=== PATIENT | female | born 1995 | race Caucasian/White ===

== ENCOUNTER 2016-12-15 09:38 | Observation (INO) | payer MEDICAID ==
[2016-12-15 10:09] LABS: WBC/URINE 20-30 (0-5)
[2016-12-15] MEDS ORDERED: DEXAMETHASONE 4 MG/ML VIAL IV ONE (10:10)
[2016-12-15] MEDS ORDERED: MIDAZOLAM 2 MG/2 ML VIAL IV ONE (10:10)
[2016-12-15] MEDS ORDERED: ROCURONIUM 50 MG/5 ML VIAL IV ONE (10:10)
[2016-12-15] MEDS ORDERED: SUCCINYLCHOLINE 20 MG/1 ML INJ 10 ML MDV IV ONE (10:10)
[2016-12-15] MEDS ORDERED: FENTANYL 250 MCG/5 ML VIAL IV ONE (10:10)
[2016-12-15] MEDS ORDERED: GLYCOPYRROLATE 1 MG VIAL IM ONE (10:10)
[2016-12-15] MEDS ORDERED: ONDANSETRON HCL 4 MG/2 ML VIAL IV ONE ×2 (10:10→10:19)
[2016-12-15] MEDS ORDERED: METOCLOPRAMIDE 10 MG/2 ML VIAL IV ONE (10:10)
[2016-12-15] MEDS ORDERED: NEOSTIGMINE 1 MG/1 ML (1:1000) INJ 10 ML MDV IM ONE (10:10)
[2016-12-15] MEDS ORDERED: LIDOCAINE 100 MG PFS IV ONE (10:10)
[2016-12-15] MEDS ORDERED: PROPOFOL 200 MG/20 ML VIAL IV ONE (10:10)
[2016-12-15 10:12] LABS: LEUKOCYTES/URINE 2+ (NEGATIVE); NITRITE/URINE NEG (NEGATIVE); URINE OCCULT BLOOD NEG (NEG/TRACE)
[2016-12-15] MEDS ORDERED: MORPHINE 4 MG/ML INJECTION IV ONE (10:19)
[2016-12-15] MEDS ORDERED: DIATRIZOATE MEGLMINE/SODIUM 30 ML BOTTLE PO ONE (10:19)
[2016-12-15] MEDS ORDERED: NS 1,000 ML IV ONE (10:22)
--- NOTE | 2016-12-15 10:22 | EDPRACDOC ---
- General Information Chief Complaint: Abdominal Pain Stated Complaint: RT ABD PAIN Time Seen by Provider: 12/15/16 10:04 Information Source: Patient Mode Of Arrival: Car Home Medications: Home Medications No Home Medications 12/15/16 Allergies/Adverse Reactions: Allergies Allergy/AdvReac Type Severity Reaction Status Date / Time No Known Allergies Allergy Verified 12/15/16 09:46 - History of Present Illness Onset: wednesday Pain Location: Reports: RLQ Pain Context: Reports: Spontaneous Pain Severity: Moderate Pain Quality: Reports: Aching Pain Radiation: Reports: No Radiation Last Menstrual Period: new baby 6 weeks: : No Blood Type: A+ Female Abdominal History: Denies: Abdominal Surgery, UTI, Ectopic, PID, Urolithiasis, Similar Pain (dx) Modifying Factors: improves with: Movement Female Associated Signs & Symptoms: Reports: Nausea, Vomiting, Anorexia, Dysuria , Urgency. Denies: Diarrhea, Fever, Hematuria, Vaginal Discharge (STABLE FROM DELIVERY) Oral Intake: Decreased Urinary Output: Decreased Other History: NOT BREAST FEEDING ED Past Medical History - History Reviewed Yes Nurses notes reviewed and agree except as marked - Patient Medical History Psychological History: Denies: Depression Systemic History: Reports: Anemia. Denies: Cancer Additional Past Surgical History: SPONTANEOUS VAGINAL DELIVERY - Family Medical History Denies: Hypertension, Diabetes, Cancer, Stroke, Cardiac Disorders - Social Medical History Smoking Status: Heavy tobacco smoker (5 or more cigarettes/day or daily pipe/ cigar) Social History: Denies: Amphetamine Use, Barbiturate Use, Benzodiazipine Use Lives With: Significant Other Lives In: Home EDM Review of Systems - Review of Systems ROS Negative Except as Marked: Yes All systems reviewed and were negative except as marked - Physical Exam Constitutional: Alert, Distress (UNCOMFORTABLE) Oriented to: Time, Person, Place Last recorded Vital Signs: Last Vital Signs Temp 98.5 F 12/15/16 09:44 Pulse 59 L 12/15/16 11:58 Resp 18 12/15/16 11:58 BP 119/66 12/15/16 11:58 Pulse Ox 100 12/15/16 11:58 Oxygen Pulse Oxygen Saturation 100 O2 Device Room Air Oxygen Flow Rate Fraction of Inspired Oxygen ( FIO2) - HEENT Head: Normal Eye Exam: Normal. negative: Pale Conjunctiva, Scleral Icterus Oropharynx: Normal. negative: Membranes Dry - Respiratory/Cardiovascular Respiratory: Normal - CTA Cardiovascular: Normal - GI Auscultation: Normal Palpation: Normal Tenderness: Moderate, Guarding (VOLUNTARY), RLQ. negative: Rebound, Rigidity Bashir's Sign: Negative - Musculoskeletal Back: Normal. negative: CVA Tenderness, Thoracic TTP, Lumbar TTP Extremities: Normal - Integumentary Skin: Normal, Warm, Dry - Neurologic Memory Impaired: Normal Mood Description: Normal Thought: Coherent Perception: Normal - Differential Diagnosis Appendicitis, Inflammatory Bowel Dz, UTI, Ureterolithiasis - Results 12/15/16 09:57 12/15/16 09:57 WBC 14.7 xk/uL (3.8-10.8) H 12/15/16 09:57 RBC 4.39 xM/uL (4.20-5.40) 12/15/16 09:57 Hgb 13.5 g/dL (12.0-16.0) 12/15/16 09:57 Hct 39.7 % (36-47) 12/15/16 09:57 MCV 90 fL (81-99) 12/15/16 09:57 MCH 30.7 pg (27-32) 12/15/16 09:57 MCHC 34.0 g/dl (33-36) 12/15/16 09:57 RDW 14.0 % (11.5-14.5) 12/15/16 09:57 Plt Count 186 xk/uL (130-400) 12/15/16 09:57 MPV 9.9 fL (7.4-10.4) 12/15/16 09:57 Neut % (Auto) 76.9 % (45-76) H 12/15/16 09:57 Lymph % (Auto) 13.0 % (17-44) L 12/15/16 09:57 [place] % (Auto) 8.7 % (3-10) 12/15/16 09:57 Eos % (Auto) 0.8 % (0-5) 12/15/16 09:57 Baso % (Auto) 0.6 % (0-2) 12/15/16 09:57 Absolute Neuts (auto) 11.17 xk/uL (1.7-8.2) H 12/15/16 09:57 Absolute Lymphs (auto) 1.91 xk/uL (0.65-4.75) 12/15/16 09:57 Sodium 141 mEq/L (137-146) 12/15/16 09:57 Potassium 3.6 mEq/L (3.5-5.1) 12/15/16 09:57 Chloride 103 mEq/L (98-107) 12/15/16 09:57 Carbon Dioxide 26 mMOL/L (22-33) 12/15/16 09:57 Anion Gap 16 mEq/L (8-16) 12/15/16 09:57 BUN 14 MG/DL (7-17) 12/15/16 09:57 Creatinine 0.90 MG/DL (0.52-1.04) 12/15/16 09:57 Estimated GFR (MDRD) > 60 mL/min (>=60) 12/15/16 09:57 Glucose 91 MG/DL (70-99) 12/15/16 09:57 Calculated Osmolality 272 MOs/Kg (270-290) 12/15/16 09:57 Calcium 9.6 MG/DL (8.4-10.2) 12/15/16 09:57 Total Bilirubin 1.3 MG/DL (0.2-1.3) 12/15/16 09:57 AST 16 IU/L (14-36) 12/15/16 09:57 ALT 24 IU/L (9-52) 12/15/16 09:57 Alkaline Phosphatase 59 IU/L (38-126) 12/15/16 09:57 Total Protein 7.3 G/DL (6.3-8.2) 12/15/16 09:57 Albumin 4.3 G/DL (3.5-5.0) 12/15/16 09:57 Urine Color Yellow 12/15/16 09:44 Urine Clarity Cldy 12/15/16 09:44 Urine pH 7.0 (5.0-8.0) 12/15/16 09:44 Ur Specific [place] 1.005 (1.003-1.035) 12/15/16 09:44 Urine Protein 1+ (NEG/TRACE) H 12/15/16 09:44 Urine Glucose (UA) Neg (NEGATIVE) 12/15/16 09:44 Urine Ketones Neg (NEGATIVE) 12/15/16 09:44 Urine Occult Blood Neg (NEG/TRACE) 12/15/16 09:44 Urine Nitrite Neg (NEGATIVE) 12/15/16 09:44 Urine Bilirubin Neg (NEGATIVE) 12/15/16 09:44 Urine Urobilinogen 0.2 MG/DL (0-1) 12/15/16 09:44 Ur Leukocyte Esterase 2+ (NEGATIVE) H 12/15/16 09:44 Urine RBC 5-10 (0-5) H 12/15/16 09:44 Urine WBC 20-30 (0-5) H 12/15/16 09:44 Ur Epithelial Cells 4+ 12/15/16 09:44 Urine Bacteria 2+ (NEG/FEW) H 12/15/16 09:44 Urine Mucus Large (NEG/OCC) 12/15/16 09:44 Urine Test Neg (NEGATIVE) 12/15/16 09:44 Lab Results 12/15/16 12/15/16 12/15/16 09:57 09:57 09:44 WBC 14.7 H RBC 4.39 Hgb 13.5 Hct 39.7 MCV 90 MCH 30.7 MCHC 34.0 RDW 14.0 Plt Count 186 MPV 9.9 Neut % (Auto) 76.9 H Lymph % (Auto) 13.0 L [place] % (Auto) 8.7 Eos % (Auto) 0.8 Baso % (Auto) 0.6 Absolute Neuts (auto) 11.17 H Absolute Lymphs (auto) 1.91 Sodium 141 Potassium 3.6 Chloride 103 Carbon Dioxide 26 Anion Gap 16 BUN 14 Creatinine 0.90 Estimated GFR (MDRD) > 60 Glucose 91 Calculated Osmolality 272 Calcium 9.6 Total Bilirubin 1.3 AST 16 ALT 24 Alkaline Phosphatase 59 Total Protein 7.3 Albumin 4.3 Urine Color Yellow Urine Clarity Cldy Urine pH 7.0 Ur Specific [place] 1.005 Urine Protein 1+ H Urine Glucose (UA) Neg Urine Ketones Neg Urine Occult Blood Neg Urine Nitrite Neg Urine Bilirubin Neg Urine Urobilinogen 0.2 Ur Leukocyte Esterase 2+ H Urine RBC 5-10 H Urine WBC 20-30 H Ur Epithelial Cells 4+ Urine Bacteria 2+ H Urine Mucus Large Urine Test 12/15/16 09:44 WBC RBC Hgb Hct MCV MCH MCHC RDW Plt Count MPV Neut % (Auto) Lymph % (Auto) [place] % (Auto) Eos % (Auto) Baso % (Auto) Absolute Neuts (auto) Absolute Lymphs (auto) Sodium Potassium Chloride Carbon Dioxide Anion Gap BUN Creatinine Estimated GFR (MDRD) Glucose Calculated Osmolality Calcium Total Bilirubin AST ALT Alkaline Phosphatase Total Protein Albumin Urine Color Urine Clarity Urine pH Ur Specific [place] Urine Protein Urine Glucose (UA) Urine Ketones Urine Occult Blood Urine Nitrite Urine Bilirubin Urine Urobilinogen Ur Leukocyte Esterase Urine RBC Urine WBC Ur Epithelial Cells Urine Bacteria Urine Mucus Urine Test Neg - Departure Disposition: Admit IP To This Hospital Condition: Stable Final Diagnosis: Appendicitis Urinary tract infection Qualifiers: Urinary tract infection type: acute cystitis Hematuria presence: with hematuria Qualified Code(s): N30.01 - Acute cystitis with hematuria Instructions: Urinary Tract Infection in Women (ED), Appendicitis (GEN) Education/Counseling Given To: Patient, Family Member Education/Counseling Given Regarding: Diagnosis, Treatment, Prognosis Decision to Admit Time: 12:53 Decision to admit date: 12/15/16 Decision to admit: from ED - Physician Consulted Surgery Time Called: 12:53 Provider Called: Buzz Stover Time [employer]ing Machine Operator Returned Call: 12:53
[2016-12-15 10:49] LABS: AUTOMATED BASOPHIL 0.6 % (0-2); AUTOMATED EOSINOPHIL 0.8 % (0-5); AUTOMATED MONOCYTE 8.7 % (3-10); AUTOMATED NEUTROPHIL 76.9 % (45-76); MPV 9.9 fL (7.4-10.4)
[2016-12-15] MEDS ORDERED: Pharmacy Review for Metformin - IV Contrast Given SCH ×2 (11:00)
[2016-12-15 11:03] LABS: BLOOD UREA NITROGEN 14 MG/DL (7-17); CALCIUM 9.6 MG/DL (8.4-10.2); CALCULATED OSMOLALITY 272 MOs/Kg (270-290); CHLORIDE 103 mEq/L (98-107); GLUCOSE 91 MG/DL (70-99); SODIUM LEVEL 141 mEq/L (137-146); TOTAL PROTEIN 7.3 G/DL (6.3-8.2)
[2016-12-15] MEDS ORDERED: CEFTRIAXONE 2 GM in D5W 100 ML IV ONE (11:51)
--- NOTE | 2016-12-15 12:48 | DIRPT ---
CLINICAL DATA: Right lower quadrant abdominal pain with nausea and vomiting for 3 days. Suspicion for appendicitis. EXAM: CT ABDOMEN AND PELVIS WITH CONTRAST TECHNIQUE: Multidetector CT imaging of the abdomen and pelvis was performed using the standard protocol following bolus administration of intravenous contrast. CONTRAST: 80 mL of Isovue 370 intravenous contrast COMPARISON: None. FINDINGS: Lung bases: Clear. Heart normal size. Liver, spleen, gallbladder, pancreas, adrenal glands: Normal. Kidneys, ureters, bladder: Normal. Uterus and adnexa: Unremarkable. Lymph nodes: No adenopathy. Ascites: Small amount ascites extends along the right paracolic gutter into the posterior pelvic recess. Appendix: Appendix is retrospect cecal. It has a maximum diameter of 12 mm. There is surrounding inflammatory change. There is no defined fluid collection to suggest an abscess and no extraluminal air. Gastrointestinal: Stomach, small bowel and colon are unremarkable. Musculoskeletal: Levoscoliosis of the lumbar spine. Otherwise unremarkable. IMPRESSION: 1. Acute appendicitis. No evidence of an abscess or conclusive evidence of rupture. These results were called by telephone at the time of interpretation on 12/15/2016 at 12:[address] ANURAG MENJIVAR MD, who verbally acknowledged these results. 2. Small amount ascites is associated with the right lower quadrant inflammatory changes. 3. No other abnormalities. Electronically Signed By: Bryn Martinez M.D. On: 12/15/2016 12:46
[2016-12-15] MEDS ORDERED: ACETAMINOPHEN 650 MG SUPP PR PRN (13:56)
[2016-12-15] MEDS ORDERED: Aluminum;Magnesium;Simethicone 30 ML UDC PO PRN (13:56)
[2016-12-15] MEDS ORDERED: ZOLPIDEM TARTRATE 5 MG TAB PO PRN (13:56)
[2016-12-15] MEDS ORDERED: ONDANSETRON HCL 4 MG/2 ML VIAL IV PRN ×2 (13:56→16:15)
[2016-12-15] MEDS ORDERED: ACETAMINOPHEN 325 MG/TAB TABLET PO PRN (13:56)
[2016-12-15] MEDS ORDERED: PROMETHAZINE 25 MG/ML VIAL IV PRN (13:56)
[2016-12-15] MEDS ORDERED: DOCUSATE-SENNA CONCENTRATE TAB PO PRN (13:56)
[2016-12-15] MEDS ORDERED: LORAZEPAM 2 MG/ML VIAL IV PRN (13:56)
[2016-12-15] MEDS ORDERED: DIPHENHYDRAMINE 25 MG CAP PO PRN (13:56)
[2016-12-15] MEDS ORDERED: LR 1,000 ML IV SCH (13:56)
[2016-12-15] MEDS: MORPHINE 2 MG/ML INJECTION IV PRN ×3 (14:06→23:58)
[2016-12-15] MEDS ORDERED: ERTAPENEM 1 GM in NS 100 ML IV SCH (15:00)
[2016-12-15] MEDS ORDERED: Vaccine Screening Complete SCH (15:00)
--- NOTE | 2016-12-15 15:44 | HISTPHYS ---
- Chief Complaint Right lower quadrant abdominal pain - History of Present Illness 21-year-old female with a 2 day history of right lower quadrant abdominal pain. This was associated some nausea and vomiting. She states she had fevers up to 103. She has no diarrhea or constipation. She has no melena or hematochezia. She has not truly anorexic as she is hungry now. She states the pain is mostly in the right lower quadrant is not migrated. Moving around makes the pain worse. Lying still makes the pain better. She came to the emergency department for evaluation. Blood blood cell count was elevated. CT scan showed findings consistent with acute appendicitis. I was asked for surgical consultation. - Medical History Cardiac History: Reports: No Significant History Respiratory History: Reports: No Significant History GI/ History: Reports: No Significant History. Denies: Urinary Tract Infection Musculoskeletal History: Reports: No Significant History Systemic History: Reports: Anemia Neurological History: Reports: No Significant History Psychological History: Reports: No Significant History. Denies: Depression - Surgical History Reports: No Significant History - Medictions/Allergies Allergies No Known Allergies Allergy (Verified 12/15/16 09:46) Home Medications No Home Medications 12/15/16 - Family History Denies: Hypertension, Diabetes, Cancer, Stroke, Cardiac Disorders - Social History Travel Outside of [place] in the Last 3 Months?: No Smoking Status: Heavy tobacco smoker (5 or more cigarettes/day or daily pipe/ cigar) - Review of Systems Yes All systems reviewed and were negative except as marked Gastrointestinal: Nausea, Vomiting, Abdominal Pain - Physical Exam Vital Signs: Initial Vitals Temperature 98.5 F 12/15/16 09:44 Pulse Rate 93 12/15/16 09:44 Respiratory Rate 18 12/15/16 09:44 Blood Pressure 132/56 L 12/15/16 09:44 Pulse Oxygen Saturation 97 12/15/16 09:44 Exam: General: Pleasant female No acute distress. HEENT: Normocephalic atraumatic. Sclerae nonicteric. Extraocular movements intact. Oral mucosa pink and moist. Neck: Supple. Nontender. Good range of motion. No masses. Trachea is midline. No cervical adenopathy. Lungs: Clear to auscultation. No rhonchi or wheezing. Good excursion. Heart: Regular rate and rhythm. No murmurs or rubs. Abdomen: Soft, active bowel sounds, nondistended. No hepatosplenomegaly. No abdominal wall defects or masses. Tender in the right lower quadrant with focal rebound tenderness and referred rebound tenderness.. Groins: No hernias or masses. Back: No CVA tenderness. No ecchymosis. Extremities: no cyanosis clubbing or edema. No palpable deformities. Vascular: Dorsalis pedis and posterior tibial pulses palpable bilaterally. Skin: Warm and dry, no erythema , no ulcerations. No jaundice Neurologic: No focal deficits. - Lab Results Laboratory Results - last 24 hr 12/15/16 12/15/16 12/15/16 09:44 09:44 09:57 WBC RBC Hgb Hct MCV MCH MCHC RDW Plt Count MPV Neut % (Auto) Lymph % (Auto) [place] % (Auto) Eos % (Auto) Baso % (Auto) Absolute Neuts (auto) Absolute Lymphs (auto) Sodium 141 Potassium 3.6 Chloride 103 Carbon Dioxide 26 Anion Gap 16 BUN 14 Creatinine 0.90 Estimated GFR (MDRD) > 60 Glucose 91 Calculated Osmolality 272 Calcium 9.6 Total Bilirubin 1.3 AST 16 ALT 24 Alkaline Phosphatase 59 Total Protein 7.3 Albumin 4.3 Urine Color Yellow Urine Clarity Cldy Urine pH 7.0 Ur Specific [place] 1.005 Urine Protein 1+ H Urine Glucose (UA) Neg Urine Ketones Neg Urine Occult Blood Neg Urine Nitrite Neg Urine Bilirubin Neg Urine Urobilinogen 0.2 Ur Leukocyte Esterase 2+ H Urine RBC 5-10 H Urine WBC 20-30 H Ur Epithelial Cells 4+ Urine Bacteria 2+ H Urine Mucus Large Urine Test Neg 12/15/16 09:57 WBC 14.7 H RBC 4.39 Hgb 13.5 Hct 39.7 MCV 90 MCH 30.7 MCHC 34.0 RDW 14.0 Plt Count 186 MPV 9.9 Neut % (Auto) 76.9 H Lymph % (Auto) 13.0 L [place] % (Auto) 8.7 Eos % (Auto) 0.8 Baso % (Auto) 0.6 Absolute Neuts (auto) 11.17 H Absolute Lymphs (auto) 1.91 Sodium Potassium Chloride Carbon Dioxide Anion Gap BUN Creatinine Estimated GFR (MDRD) Glucose Calculated Osmolality Calcium Total Bilirubin AST ALT Alkaline Phosphatase Total Protein Albumin Urine Color Urine Clarity Urine pH Ur Specific [place] Urine Protein Urine Glucose (UA) Urine Ketones Urine Occult Blood Urine Nitrite Urine Bilirubin Urine Urobilinogen Ur Leukocyte Esterase Urine RBC Urine WBC Ur Epithelial Cells Urine Bacteria Urine Mucus Urine Test - Diagnostic Findings EXAM: CT ABDOMEN AND PELVIS WITH CONTRAST TECHNIQUE: Multidetector CT imaging of the abdomen and pelvis was performed using the standard protocol following bolus administration of intravenous contrast. CONTRAST: 80 mL of Isovue 370 intravenous contrast COMPARISON: None. FINDINGS: Lung bases: Clear. Heart normal size. Liver, spleen, gallbladder, pancreas, adrenal glands: Normal. Kidneys, ureters, bladder: Normal. Uterus and adnexa: Unremarkable. Lymph nodes: No adenopathy. Ascites: Small amount ascites extends along the right paracolic gutter into the posterior pelvic recess. Appendix: Appendix is retrospect cecal. It has a maximum diameter of 12 mm. There is surrounding inflammatory change. There is no defined fluid collection to suggest an abscess and no extraluminal air. Gastrointestinal: Stomach, small bowel and colon are unremarkable. Musculoskeletal: Levoscoliosis of the lumbar spine. Otherwise unremarkable. IMPRESSION: 1. Acute appendicitis. No evidence of an abscess or conclusive evidence of rupture. These results were called by telephone at the time of interpretation on 12/15/2016 at 12:[address] ANURAG MENJIVAR MD, who verbally acknowledged these results. 2. Small amount ascites is associated with the right lower quadrant inflammatory changes. 3. No other abnormalities. Electronically Signed By: Bryn Martinez M.D. On: 12/15/2016 12:46 - Assessment/Plan (1) Acute appendicitis with localized peritonitis K35.3 - ACUTE APPENDICITIS WITH LOCALIZED PERITONITIS Acute Present on Admission: Yes Comment: Patient presents with historical, clinical, and radiographic evidence of acute appendicitis. Patient has been started on IV fluids and IV antibiotics. She undergo a laparoscopic appendectomy today. The rationale for this was discussed. Nonsurgical therapy was discussed and discouraged. Risks of surgery were discussed and include, but are not limited to: Bleeding, infection , nerve damage, cardiopulmonary risk, abscess, hernia, abdominal organ injury, or other possible adverse outcomes. Patient is increased surgical risk due to her cigarette smoking. Smoking cessation is warranted. Patient is agreeable to surgical intervention for acute appendicitis. (2) RLQ abdominal pain R10.31 - RIGHT LOWER QUADRANT PAIN Acute Present on Admission: Yes Comment: Due to acute appendicitis. This will be managed surgically. (3) Leukocytosis D72.829 - ELEVATED WHITE BLOOD CELL COUNT, UNSPECIFIED Acute Present on Admission: Yes unspecified D72.829 - Elevated white blood cell count, unspecified Comment: Due to acute appendicitis. Antibiotics were started. She will undergo a laparoscopic appendectomy today. Follow white blood cell count postoperatively. Case Care Discussed with: Patient
[2016-12-15] MEDS ORDERED: hydrALAZINE 20 MG/ML VIAL IV PRN (16:15)
[2016-12-15] MEDS ORDERED: LABETALOL 20 MG/4 ML SYRINGE IV PRN (16:15)
[2016-12-15] MEDS ORDERED: MEPERIDINE 25 MG/ML TUBEX IV PRN (16:15)
[2016-12-15] MEDS ORDERED: ONDANSETRON HCL 4 MG ODT TAB PO PRN (16:15)
[2016-12-15] MEDS ORDERED: HYDROmorphone 1 MG INJECTION IV PRN ×2 (16:15)
[2016-12-15] MEDS ORDERED: FENTANYL 100 MCG/2 ML VIAL IV PRN ×2 (16:15)
--- NOTE | 2016-12-15 16:32 | HIM.ANES ---
Anesthesia Evaluation & Plan - Focused Review of Systems Now: No Cardiac History: Yes: Hx Cardiac Disorders HEENT: No: Other HEENT Problems Gastrointestinal: No: Hx Gastrointestinal Disorders Neurological/Musculoskeletal: No: Hx Neurological Disorders Psychological: No Hx Depression, No Hx Mental/Emotional Disorders Blood/Autoimmune: Yes: Hx Anemia No: Hx AIDS, Hx Hepatitis (type) Smoking Status: Heavy tobacco smoker (5 or more cigarettes/day or daily pipe/ cigar) Past Social History: Denies: Amphetamine Use, Barbiturate Use, Benzodiazipine Use - Focused Physical Exam NPO since: 1039 Mallampati: Class II Thyromental Distance: Greater than 3 Neck: Full Range of Motion Dental: Normal - no significant findings Cardiovascular/Chest: Normal Respiratory: Lungs clear Any problems with anesthesia, including nausea and vomiting?: No Any relatives with a history of Malignant Hyperthermia?: No Beta Bev given (if appropriate): No Other: Problem List Problem Status Onset Acute appendicitis with localized peritonitis Acute Appendicitis Acute Leukocytosis Acute RLQ abdominal pain Acute Urinary tract infection Acute 31 weeks gestation of Acute 40 weeks gestation of Acute Elective induction of labor planned Acute Pyelonephritis affecting in third trimester Acute Single live Acute UTI (urinary tract infection) in in third trimester Acute Upper respiratory infection Acute Vaginal bleeding Acute Vaginal delivery Acute PT/PTT/INR/ Urine Test Neg (NEGATIVE) 12/15/16 09:44 Allergies Allergy/AdvReac Type Severity Reaction Status Date / Time No Known Allergies Allergy Verified 12/15/16 09:46 Home Medications Medication Instructions Recorded Last Taken Type No Home Medications 12/15/16 Unknown History Vital Signs Temperature 98.3 F 12/15/16 12:51 Pulse Rate 69 12/15/16 13:28 Respiratory Rate 20 12/15/16 13:28 Blood Pressure 128/69 12/15/16 13:28 Pulse Oxygen Saturation 99 12/15/16 13:28 - Anesthetic Plan Anesthesia Type: General ASA Class: 2 -: I have examined this patient and reviewed the medical record. The patient has been assessed prior to anesthesia. Risks and benefits of anesthesia and anesthetic technique options have been discussed and all questions answered. The patient accepts the risk and desires me to proceed with the planned anesthetic.
[2016-12-15] MEDS ORDERED: BUPIVACAINE 0.5% 30 ML VIAL ONE (17:03)
--- NOTE | 2016-12-15 17:17 | HIMOPRPT ---
DATE OF PROCEDURE: 12/15/16 PREOPERATIVE DIAGNOSIS: Acute appendicitis. POSTOPERATIVE DIAGNOSIS: Acute appendicitis, final pathology pending. PROCEDURE: Laparoscopic appendectomy. SURGEON: Buzz Stover M.D. ANESTHESIA: General. COMPLICATIONS: None. SPECIMEN: Appendix and mesoappendix to Pathology. PACKINGS AND DRAINS: None. ESTIMATED BLOOD LOSS: 3 cc. OPERATIVE FINDINGS AND TECHNIQUE: With consent, the patient was brought to the operative suite, placed in supine position. Following general anesthesia, the abdomen was prepped and draped in usual fashion. A curvilinear infraumbilical incision was made. Dissection was carried down to the level of the fascia, and the fascia was incised in the midline. Peritoneal cavity was entered under direct vision. The balloon Kyara trocar was placed. The abdominal cavity was inflated with carbon dioxide creating pneumoperitoneum. Videoscopic exploration was undertaken. The appendix was inflamed in a retrocecal location and there was some serous fluid in the pelvic area. The patient was appropriately positioned and additional trocars were then placed. A 5-mm trocar was placed in the suprapubic area, and an additional 5-mm trocar was placed in left lower quadrant. In each case, skin incision was made with skin knife and trocars entered the peritoneal cavity under videoscopic guidance. Appendix was grasped and retracted. Mesoappendix was identified and ligated and divided using the Harmonic Scalpel. The base of the appendix was stapled across using laparoscopic EPIFANIO stapler. The appendiceal stump staple line was intact and hemostatic. The appendix was placed in a retrieval sac, taken out of the abdominal cavity and passed off as specimen. Right upper quadrant and pelvic area and right lower quadrant were irrigated copiously. There was no further pelvic fluid. The effluent was clear. Again, the appendiceal stump staple line was intact and hemostatic. Trocars were then sequentially removed. There was no bleeding from the trocar insertion sites. The abdomen was desufflated. The fascia of the infraumbilical incision was closed with 0-Vicryl suture in interrupted [id number] fashion. All wounds were irrigated and dried. All wounds were injected with 0.5% Marcaine. Each skin incision was approximated using 4-0 Monocryl in subcuticular fashion. Dermabond, 2 x 2 gauze, and Tegaderm dressings were applied to the wounds. The patient tolerated the procedure well with findings as described. At termination of the procedure, all instrument, sponge, and needle counts were correct. Final pathology is pending.
[2016-12-15] MEDS: FENTANYL 100 MCG/2 ML VIAL ONE ×2 (17:39→17:48)
--- NOTE | 2016-12-15 17:55 | SC.ANESPOS ---
Post-Anesthesia Note LOC: Fully Awake Post-Anesthesia Assessment: Awake, Returned to Baseline, Hemodynamically Stable , Pain Control Adequate Phase I & II Recovery Complete: Yes Apparent Anesthesia Complication: No : N - Vital Signs Blood Pressure: 133/70 Pulse: 100 Resp Rate: 16 O2 Sat: 100 Temp: 97.9 F
[2016-12-15] MEDS ORDERED: NICOTINE 21 MG PATCH TOP SCH (18:11)
[2016-12-15] MEDS ORDERED: SODIUM CHLORIDE 0.9% 3 ML FLUSH FLUSH SCH (18:11)
[2016-12-15 18:34] VITALS: BMI 19.7
[2016-12-15] MEDS: OXYCODONE HCL 5 MG TABLET PO PRN (19:11)
[2016-12-16] MEDS: OXYCODONE HCL 5 MG TABLET PO PRN ×2 (01:54→08:34)
[2016-12-16] MEDS ORDERED: MORPHINE 2 MG/ML INJECTION ONE ×2 (03:01→03:02)
[2016-12-16 05:17] VITALS: BP 129/58; PULSE 65; TEMP 98.4
[2016-12-16 07:10] LABS: MPV 9.3 fL (7.4-10.4)
--- NOTE | 2016-12-16 08:54 | PCM.DCS92 ---
- Final/Secondary Discharge Diagnosis (1) Acute appendicitis with localized peritonitis Resolved K35.3 - ACUTE APPENDICITIS WITH LOCALIZED PERITONITIS Present on Admission: Yes Plan/Goal/Comment: Postop day 1. Status post laparoscopic appendectomy. Patient had no fever spikes overnight. She is voiding well. She is ambulating well. She is tolerating liquid diet well. White blood cell count is normalized. She is deemed stable candidate for discharge home. Discharge Disposition: Home Discharge Condition: Stable Cognitive Discharge Status: Unimpaired Fuctional Discharge Status: Independent Physician Follow up/Referrals: Buzz Stover MD [Staff Physician] - Call for Appointment (Call today for an appointment in 1-2 weeks) Home Medications/ New Prescriptions: New Ibuprofen Tablet [Motrin] 600 mg PO Q8H PRN #30 tab PRN Reason: Pain Oxycodone Immediate Release [Oxy-Ir] 5 mg PO Q4H PRN #40 tab PRN Reason: Pain Promethazine HCl [Phenergan] 12.5 mg PO Q6 PRN #30 tablet PRN Reason: Nausea/Vomiting Diet at Discharge: As Tolerated Activity: No Heavy Lifting, No Driving Call Office For: Worsening Symptoms, Wound is Draining Pus, Fever over 101 F Discontinue use of:: Alcohol, All Illegal Substances, All Types of Tobacco - DC Summary Notes Hospital Course Note:: Discharge summary on patient named ERICKSON RASCON admitted to [facility] on 12/15/16 by Buzz Stover MD. Date of discharge is . Patient came to the hospital with acute appendicitis underwent a laparoscopic appendectomy yesterday. By postop day 1., she had no fever spikes. Her white blood cell count normalized. She is voiding well. She is ambulating well. She is tolerating liquid diet well. She is deemed a stable candidate for discharge home. Patient will be followed up in the office. For the remainder of the discharge instructions please see the electronic medical record discharge summary for details. Discharge instructions were discussed at length the patient. She admitted verbal understanding to the discharge instructions at time of discharge. The patient was subsequently discharged in stable condition. Wound Care Surgical Site: Yes Site Description (if applicable): Abdomen May Shower Starting:: Today Remove Clear Dressing In How Many Days?: Seven Ability To Perform Care (if applicable): Yes - Physical Exam Vital Signs: Initial Vitals Temperature 98.5 F 12/15/16 09:44 Pulse Rate 93 12/15/16 09:44 Respiratory Rate 18 12/15/16 09:44 Blood Pressure 132/56 L 12/15/16 09:44 Pulse Oxygen Saturation 97 12/15/16 09:44 Constitutional: No apparent distress Respiratory: Normal - CTA Cardiovascular: Normal - GI Auscultation: Normal Palpation: Normal Tenderness: Mild (At the incisions)
== END 2016-12-16 10:11 | disposition home or self-care (01) ==
LOC: ED 09:38 → MPS3 13:10
PROVIDERS: ADMIT Surgery Vascular Surgery; ATTEND Surgery Vascular Surgery
PROC: 0DTJ4ZZ Resection of Appendix, Percutaneous Endoscopic Approach (ICD-10-PCS; principal; 2016-12-15 16:15)
DX: K35.3 Acute appendicitis with localized peritonitis (principal); N30.01 Acute cystitis with hematuria; F17.200 Nicotine dependence, unspecified, uncomplicated
CPT/HCPCS: 36415; 44970; 74177; 80053; 81001; 81025; 85025; 85027; 96361; 96365; 96375; 99284; 99406; A9698; G0237; G0378; J0330; J0696; J1100; J1335; J2001; J2250; J2270; J2405; J2710; J2765; J3010; J3490; J7030; J7060